=== PATIENT | female | born 1970 | race Asian ===

== ENCOUNTER 2019-07-20 14:23 | Emergency (ER) | payer BC ==
[2019-07-20 14:41] VITALS: BMI 28.1
[2019-07-20] MEDS ORDERED: ACETAMINOPHEN INJECTION 100 ML IVPB ONE (15:37)
[2019-07-20] MEDS ORDERED: ONDANSETRON 4 MG/2 ML VIAL IVPUSH ONE (15:38)
[2019-07-20] MEDS ORDERED: ONDANSETRON 4 MG/2 ML VIAL ONE (15:38)
[2019-07-20] MEDS ORDERED: ACETAMINOPHEN 1000 MG/100 ML VIAL (NON FORMULARY) IVPB ONE (15:38)
[2019-07-20] MEDS ORDERED: SODIUM CHLORIDE 0.9% 1000 ML INFUS.BAG IV ONE (15:38)
[2019-07-20] MEDS ORDERED: FAMOTIDINE 20 MG/50 ML IVPB 20 MG/50 ML MG IVPB ONE ×2 (15:38)
--- NOTE | 2019-07-20 15:44 | PDOC ---
Attending Attestation - Resident Resident Name: Gilberto Arnold - ED Attending Attestation I have performed the following: I have examined & evaluated the patient, The case was reviewed & discussed with the resident, I agree w/resident's findings & plan, Exceptions are as noted - HPI HPI: 07/20/19 15:41 58yo female with hx of htn and hypothyroid 2nd to thryoid resection with n/v/d that started this am after eating roti. Pt denies f/c. Pt states nbnb vomiting and cramping just before vomiting. Pt denies blood in stool. Pt denies dyuria. Pt denies recent abx or travel. No sick contacts at home. No cp/sob. No sore throat or rhinorrhea. Pt denies abd pain. No other complaints. States she has tried to get down water and chepe [place] without improvement and states she vomits up whatever she drinks. - Physicial Exam PE: 07/20/19 15:43 Gen: aaox3, nad heart: +s1s2 tachy lungs: cta b/l abd: soft, nt/nd +bs ext: no c/c/e - Medical Decision Making 07/20/19 15:43 a/p: 48yo female with n/v/d this am -suspect viral syndrome vs food poisoning -bedside ultrasound of the gallbladder is neg for acute jayden -will send labs, ivf hydration, zofran, pepcid -pt is nontoxic in appearance -will monitor and reassess -abd is soft without ttp, nondistended, normal bs
--- NOTE | 2019-07-20 15:56 | PDOC ---
History of Present Illness - General Chief Complaint: Nausea/Vomiting Stated Complaint: VOMITING Time Seen by Provider: 07/20/19 15:11 History Source: Patient Exam Limitations: No Limitations - History of Present Illness Initial Comments: 48 F, pmh htn, hypothyroidism, presents to the ED for nausea and nbnb vomiting of one day duration that began today morning after eating breakfast, accompanied by one episode of loose stool. Pt reports that she has been unable to keep fluids and food down, even though she has tried to drink as much water as she can. She denies f/c/chest pain/abdominal pain/ recent travels, sick contacts. 07/20/19 15:47 Is this a multiple visit Asthma Patient?: No Associated Symptoms: reports: denies symptoms, nausea/vomiting. denies: chest pain, cough, diaphoresis, fever/chills, headaches, shortness of breath Past History - Travel Traveled outside of the country in the last 30 days: No Close contact w/someone who was outside of country & ill: No - Past Medical History Allergies/Adverse Reactions: Allergies Allergy/AdvReac Type Severity Reaction Status Date / Time No Known Allergies Allergy Verified 07/20/19 14:38 Home Medications: Ambulatory Orders Docusate Sodium [Colace] 100 mg PO TID #90 capsule 02/09/13 Levothyroxine [Synthroid] 25 mcg PO DAILY 02/09/13 levoFLOXacin [Levaquin] 500 mg PO DAILY #7 tablet 02/09/13 Ondansetron HCl [Zofran] 4 mg PO Q8H PRN #10 tablet 07/20/19 COPD: No CHF: No DVT: No HTN: Yes Thyroid Disease: Yes (HYPO) - Surgical History Abdominal Surgery: No Appendectomy: No Cardiac Surgery: No Cholecystectomy: No - Immunization History Immunization Up to Date: Yes - Psycho Social/Smoking Cessation Hx Smoking Status: No Smoking History: Never smoked Number of Cigarettes Smoked Daily: 0 Information on smoking cessation initiated: No Review of Systems - Review of Systems Constitutional: Yes: Symptoms Reported, Weight Stable. No: Chills, Diaphoresis , Fever HEENTM: Yes: Symptoms Reported. No: Throat Swelling Respiratory: No: Cough, Orthopnea, Shortness of Breath Cardiac (ROS): No: Chest Pain, Irregular Heart Rate, Palpitations ABD/GI: Yes: Diarrhea, Nausea, Vomiting : No: Dysuria, Incontinence Musculoskeletal: No: Back Pain All Other Systems: Reviewed and Negative *Physical Exam - Vital Signs Last Vital Signs Temp Pulse Resp BP Pulse Ox 98.6 F 116 H 20 138/74 100 07/20/19 14:38 07/20/19 14:38 07/20/19 14:38 07/20/19 14:38 07/20/19 14:38 - Physical Exam General Appearance: Yes: Nourished, Appropriately Dressed HEENT: positive: EOMI, PAULIE, Normal ENT Inspection, Pharynx Normal Neck: positive: Trachea midline, Normal Thyroid, Supple Respiratory/Chest: positive: Lungs Clear, Normal Breath Sounds Cardiovascular: positive: Regular Rhythm, Regular Rate, S1, S2. negative: Murmur, Gallop/S3, Gallop/S4 Vascular Pulses: Dorsalis-Pedis (R): 2+, Doralis-Pedis (L): 2+ Gastrointestinal/Abdominal: positive: Normal Bowel Sounds, Soft. negative: Protuberent, Guarding, Rebound, Tenderness Musculoskeletal: positive: Normal Inspection Neurologic: positive: Fully Oriented, Alert, Normal Mood/Affect ED Treatment Course - LABORATORY CBC & Chemistry Diagram: 07/20/19 19:50 07/20/19 16:00 Medical Decision Making - Medical Decision Making 48 F, pmh htn, hypothyroidism, presents to the ED for nausea and nbnb vomiting of one day duration that began today morning after eating breakfast, accompanied by one episode of loose stool. #Viral gastroenteritis CBC, CMP Lipase Zofran Pepcid given for nausea UA IVF 07/20/19 16:00 07/20/19 16:03 07/20/19 16:04 Discharge - Discharge Information Problems reviewed: Yes Clinical Impression/Diagnosis: Vomiting Qualifiers: Vomiting type: unspecified Vomiting Intractability: unspecified Nausea presence : with nausea Qualified Code(s): R11.2 - Nausea with vomiting, unspecified Condition: Improved Disposition: HOME - Admission No - Additional Discharge Information Prescriptions: Ondansetron HCl [Zofran] 4 mg PO Q8H PRN #10 tablet PRN Reason: Nausea And/Or Vomiting - Follow up/Referral Referrals: Ty Houser MD [Primary Care Provider] - - Patient Discharge Instructions Patient Printed Discharge Instructions: DI for Diarrhea and Traveler's Diarrhea -- Adult, DI for Nausea -- Adult, DI for Vomiting -- Adult Additional Instructions: You were seen in the emergency room for nausea, vomiting and diarrhea While you were in the emergency room, we evaluated you with lab work, blood work and imaging including an ultrasound of your stomach. We treated you with medications and your symptoms improved. To prevent any further nausea or vomiting, please take the following medications as prescribed Zofran 4mg every 8 hours, by mouth, as needed Please take all your medications as prescribed Please follow up with your primary care physician within 1 week Return to the emergency room, if you experience any further worsening of your symptoms, nausea, vomiting, diarrhea, chest pain, abdominal pain, or worsening of any of your conditions. - Post Discharge Activity
[2019-07-20 16:26] LABS: BASO % 0.2 % (0-2.0); EOS % 0.3 % (0-4.5); HEMATOCRIT 43.7 % (32.4-45.2); HEMOGLOBIN 14.3 GM/dL (10.7-15.3); LYMPH % 2.9 % (8-40); MCH 28.2 pg (25.7-33.7); MCHC 32.7 g/dl (32.0-36.0); MEAN CELL VOLUME 86.3 fl (80-96); MEAN PLT VOLUME 10.4 fl (7.5-11.1); MONO % 2.9 % (3.8-10.2); NEUT % 93.7 % (42.8-82.8); PLATELET COUNT 236 K/MM3 (134-434); RBC 5.06 M/mm3 (3.60-5.2); RDW 13.3 % (11.6-15.6); WHITE BLOOD COUNT 19.1 K/mm3 (4.0-10.0)
[2019-07-20 16:48] LABS: BILIRUBIN,TOTAL 0.5 mg/dL (0.2-1); BLOOD UREA NITROGEN 16.2 mg/dL (7-18); CALCIUM 9.1 mg/dL (8.5-10.1); CREATININE 0.8 mg/dL (0.55-1.3); POTASSIUM 4.3 mmol/L (3.5-5.1)
[2019-07-20 17:41] LABS: PH,URINE 5.5 (5.0-8.0); URINE APPEARANCE CLEAR; URINE BILIRUBIN NEGATIVE (NEGATIVE); URINE COLOR YELLOW; URINE GLUCOSE (UA) NEGATIVE (NEGATIVE); URINE KETONE NEGATIVE (NEGATIVE); URINE LEUK ESTERASE NEGATIVE (NEGATIVE); URINE NITRITE NEGATIVE (NEGATIVE); URINE PROTEIN NEGATIVE (NEGATIVE); URINE UROBILINOGEN 0.2 mg/dL (0.2-1.0)
[2019-07-20 17:44] LABS: PLATELET ESTIMATE ADEQUATE
[2019-07-20] MEDS ORDERED: SODIUM CHLORIDE 0.9% 500 ML INFUS.BAG IV ONE (19:18)
[2019-07-20 19:28] VITALS: TEMP 98.7
[2019-07-20 20:04] LABS: HEMATOCRIT 40.8 % (32.4-45.2); HEMOGLOBIN 13.2 GM/dL (10.7-15.3); MCH 27.8 pg (25.7-33.7); MCHC 32.3 g/dl (32.0-36.0); MEAN CELL VOLUME 86.1 fl (80-96); PLATELET COUNT 223 K/MM3 (134-434); RBC 4.74 M/mm3 (3.60-5.2); RDW 13.2 % (11.6-15.6); WHITE BLOOD COUNT 16.7 K/mm3 (4.0-10.0)
[2019-07-20 21:55] VITALS: BP 141/83; PULSE 100
== END 2019-07-20 21:55 | disposition home or self-care (01) ==
LOC: JER 14:23
PROC: BF42ZZZ Ultrasonography of Gallbladder (ICD-10-PCS; principal; 2019-07-20)
DX: A08.4 Viral intestinal infection, unspecified (principal); B97.89 Other viral agents as the cause of diseases classified elsewhere; I10 Essential (primary) hypertension; E89.0 Postprocedural hypothyroidism
CPT/HCPCS: 36415; 80053; 81003; 83690; 84703; 85025; 85027; 99284-25; J0131; J7030